=== PATIENT | male | born 1990 | race Caucasian/White ===

== ENCOUNTER 2016-12-05 00:19 | Observation (INO) | payer OTHER ==
[~2016-12-05] VITALS: Ht 182.9 cm; Wt 61.2 kg
--- NOTE | 2016-12-05 00:30 | NUR ---
PT TO ROOM 12, SECURITY AT BEDSIDE FOR WANDING. PT CHANGED INTO BLUE SCRUBS.
--- NOTE | 2016-12-05 00:34 | ED PSYCHIATRIC COMPLAINT ---
History of Present Illness General Chief Complaint: ETOH/Drug Related Complaint Stated Complaint: PER PT "I TOOK ALOT OF ADVIL" +SI Source: patient, family Exam Limitations: no limitations Vital Signs & Intake/Output Vital Signs & Intake/Output Vital Signs Date Time Temp Pulse Resp B/P Pulse O2 O2 Flow FiO2 Ox Delivery Rate 12/05 1919 96.0 78 132/63 12/05 1707 98.4 63 18 122/62 100 12/05 1432 96.0 70 16 137/74 97 Room Air 12/05 1014 97.0 70 18 130/78 98 Room Air 12/05 0608 96.5 71 20 127/61 98 Room Air 12/05 0036 96.4 108 20 139/80 96 Room Air Allergies Coded Allergies: NO KNOWN ALLERGIES (06/19/12) Triage Nurses Notes Reviewed? yes HPI: Patient took approximately 50 tablets of Advil and a suicide attempt approximately 2 hours prior to arrival. Patient denies coingestions. Patient denies any homicidal ideations. Patient denies any nausea or vomiting. Patient states that he took them all at once. Patient denies any hallucinations. Patient states he has one prior suicide attempt when he was a teenager. (ALEXIA FITZPATRICK,NADIA Briones) Reconcile Medications No Known Home Medications (NANCY HORNER DO) Past History Medical History Any Pertinent Medical History? none Influenza Vaccine: 06/20/12 Surgical History Surgical History: non-contributory Psychosocial History Who do you live with Significant Other What is your primary language Amharic Tobacco Use: Current Daily Use Daily Tobacco Use Amount/Type: => 5 Cigarettes daily ETOH Use: occasional use Illicit Drug Use: denies illicit drug use Family History Hx Contributory? No (ALEXIA FITZPATRICK,NADIA Briones) Review of Systems Review of Systems Constitutional: Reports: no symptoms. EENTM: Reports: no symptoms. Respiratory: Reports: no symptoms. Cardiovascular: Reports: no symptoms. GI: Reports: no symptoms. Genitourinary: Reports: no symptoms. Musculoskeletal: Reports: no symptoms. Skin: Reports: no symptoms. Neurological/Psychological: Reports: see HPI, depressed. Hematologic/Endocrine: Reports: no symptoms. Immunologic/Allergic: Reports: no symptoms. All Other Systems: Reviewed and Negative (ALEXIA FITZPATRICK,NADIA Briones) Physical Exam Physical Exam General Appearance: well developed/nourished, mild distress Head: atraumatic Eyes: Bilateral: PERRL, EOMI. Ears, Nose, Throat: normal pharynx, normal ENT inspection, hearing grossly normal Neck: normal inspection, supple Respiratory: normal breath sounds Cardiovascular: regular rate/rhythm Gastrointestinal: soft, non-tender Extremities: normal range of motion Neurological/Psychiatric: no motor/sensory deficits, awake, alert, calm, oriented x 3 Appearance/Memory/Insight: appropriate appearance, appropriate insight Behavoir/Eye Contact/Speech: cooperative, normal speech, good eye contact Thoughts/Hallucinations: normal thought pattern, no apparent hallucination Skin: intact, normal color, warm/dry SAD PERSONS Done? CRISIS CONSULT OBTAINED (ALEXIA FITZPATRICK,NADIA Briones) Progress Differential Diagnosis: drug intoxication, drug overdose, drug withdrawal, electrolyte abnormality Plan of Care: Orders Procedure Date/time Status Regular Diet 12/06 B Active Regular Diet 12/05 B Complete Admit to inpatient psych 12/05 1842 Active Vital Signs 12/05 1811 Active Admit to inpatient psych 12/05 1507 Active Discharge Patient 12/05 1507 Active Add-on Test (ER Only) 12/05 0718 Active ACETOMINOPHEN 12/05 0718 Active ACETOMINOPHEN 12/05 0633 Complete SALICYLATE 12/05 0633 Complete BASIC METABOLIC PANEL 12/05 0608 Complete Intake & Output 12/[address] in observation 12/05 0043 Active Patient Data 12/05 0043 Active Code Status 12/05 0043 Active Continuous Observation Monitor 12/05 0033 Active URINE DRUGS OF ABUSE 12/05 0033 Complete ACETOMINOPHEN 12/05 0033 Complete SALICYLATE 12/05 0033 Complete ETHANOL 12/05 0033 Complete COMPREHENSIVE METABOLIC PANEL 12/05 0033 Complete CBC WITHOUT DIFFERENTIAL 12/05 0033 Complete EKG 12/05 0033 Active ED CRISIS PSYCH CONSULT 12/05 0033 Active Current Medications Sig/Sarika Start time Last Medication Dose Stop Time Status Admin Chlorpromazine 25 MG Q6P PRN 12/05 181 AC (Thorazine 25MG Tab) Hydroxyzine HCl 25 MG Q6P PRN 12/05 181 AC (Atarax) Lorazepam 1 MG Q6P PRN 12/05 181 AC (Ativan) Trazodone HCl 50 MG AT BEDTIME NEED.. 12/05 181 AC (Desyrel) Laboratory Tests 12/05/16 0633: Anion Gap 12, Estimated GFR > 60, BUN/Creatinine Ratio 11.7, Glucose 82, Calcium 9.9, Salicylates < 1.0, Acetaminophen < 10.0 L 12/05/16 0137: Urine Opiates Screen < 100.00, Methadone Screen < 40, Barbiturate Screen < 60, Ur Phencyclidine Scrn < 6.00, Amphetamines Screen 171, U Benzodiazepines Scrn < 85, Urine Cocaine Screen < 50, Urine Cannabis Screen 74.10 H 12/05/16 0040: Anion Gap 19 H, Estimated GFR > 60, BUN/Creatinine Ratio 13.6, Glucose 95, Calcium 10.3 H, Total Bilirubin 0.8, AST 28, ALT 44, Alkaline Phosphatase 106, Total Protein 8.4 H, Albumin 5.0, Globulin 3.4, Albumin/Globulin Ratio 1.5, CBC w Diff NO MAN DIFF REQ, RBC 4.84, MCV 89.1, MCH 31.0, RDW 12.8, MPV 7.6, Gran % 77.2 H, Lymphocytes % 16.8 L, Monocytes % 5.0, Eosinophils % 0.5, Basophils % 0.5, Absolute Granulocytes 9.9 H, Absolute Lymphocytes 2.2, Absolute Monocytes 0.6, Absolute Eosinophils 0.1, Absolute Basophils 0.1, PUBS MCHC 34.8, Salicylates < 1.0, Acetaminophen < 10.0 L, Serum Alcohol < 10.0 Initial ED EKG: NSR, no ST T wave changes Hand-Off Endorsed To: NANCY HORNER DO Endorsed Time: 0700 Pending: consult (ALEXIA FITZPATRICK,NADIA Briones) Departure Departure Disposition: STILL A PATIENT Condition: Stable Clinical Impression Primary Impression: Overdose Secondary Impressions: Suicide attempt Referrals: PATIENT HAS NO PRIMARY CARE DR (PCP/Family) Departure Forms: Customer Survey General Discharge Information (ALEXIA FITZPATRICK,NADIA Briones) Departure Prescriptions: Current Visit Scripts No Known Home Medications Comments 12/05/16 7 am The patient was signed out to me by Dr. Gregory. He is being observed for repeat creatinine. The patient was in no acute distress resting comfortably, denied any complaints. 2:30 pm The patient was evaluated by crisis. He has been medically cleared. He is for admission to Inpatient Psychiatry. 12/05/16 4:25 PM I spoke with the patient and his family. They are insistent upon leaving. I explained to them that he is being held as he had a potentially life-threatening overdose. I informed that he was being involuntarily admitted for his own protection by me , because he had a potentially life-threatening overdose. The patient and his mother continued to escalate. He became progressively more agitated. I spoke with both his mother and his father multiple times, about the need for admission. I informed the patient and his mother that I will have the psychiatrist evaluate him in the emergency department, as I feel strongly he still needs to be involuntarily admitted for his own protection and the situation was escalating to the need for sedation and restraint. I spoke to the on-call psychiatrist, who agreed to evaluate the patient the ED. The psychiatrist, the mental health clinician and I all met with the patient and the mother and informed them of our concerns for his own safety, and that we were all in agreement with the need for involuntarily admitting him for his own safety. Psych Admission Note Psychiatric Admission: I have seen and evaluated SELENA NAJERA JR. I have also reviewed all the pertinent lab results and diagnostic results. SELENA NAJERA JR will be admitted to our inpatient Psychiatric unit for treatment and care. (EVENS PARMAR,NANCY Lino) Critical Care Note Critical Care Note Critical Care Time: mins: (45 MIN) (ALEXIA FITZPATRICK,NADIA Briones) ED Attending Observation Initial Observation Note: I have seen and personally examined SELENA NAJERA JR on 12/05/16 at 0043. I agree with the current emergency department documentation. The disposition (admission or discharge) is uncertain at this time, he needs a period of observation for the following reason(s): [Patient took approximately 10,000 mg of Motrin. Patient given charcoal in case there is a pill ball in his stomach to prevent further observation. Patient will need repeat chemistries in the morning to reevaluate his kidney status. As long as his kidney status remains good the patient will be medically cleared for crisis evaluation.] The ED Nurse caring for this patient has been personally informed as to what the patient is being observed for. Observation Re-Evaluation: I have reevaluated SELENA NAJERA JR on 12/05/16 at 0310. The physical findings that support the continued need to observe this patient include [patient remains calm and cooperative. Patient drank charcoal without difficulty. His neck is supple, his lungs are clear to auscultation bilaterally with good air entry and his cardiac exam is regular rate and rhythm. No repeat a BMP in the morning and once he is medically cleared he'll see crisis.]. (ALEXIA FITZPATRICK,NADIA Briones) Observation Discharge: I have reevaluated DANIASELENA JR on 12/05/16 at 1508. The patient is: (): Stable for discharge ([X]): To be admitted to Nursing Floor (): To be placed in Observation on Nursing Floor (): For transfer to other facility The patient was being observed for [following of the serum creatinine levels and evaluation by crisis to determine if the patient remains suicidal. His repeat creatinine is unremarkable. His crisis evaluation to determine that he is suicidal and needs admission to Inpatient Psychiatry. He was accepted for admission by Inpatient Psychiatry] As a result of that observation, I have determined . (NANCY HORNER DO)
--- NOTE | 2016-12-05 00:36 | NUR ---
PT TO ED AFTER TAKING 50+ 200MG ADVIL IN AN SUICIDAL GUESTURE. PT STATES THAT "A LOT OF STUFF HAS BEEN BUILDING UP AND HE JUST COULDNT TAKE IT ANYMORE". PT HAS NO MEDICAL HISTORY, PREVIOUS SI ATTEMPT BACK IN HIGH SCHOOL. PT CURRENTLY DENIES SI OR HI. PT WAS FOUND BY COUSIN AND FRIEND WHO CONVINCED HIM TO COME TO THE HOSPITAL. AT BEDSIDE FOR PT EVALUATION.
--- NOTE | 2016-12-05 00:40 | NUR ---
CHARCOAL GIVEN. PT SIPPING SLOWLY.
[2016-12-05 00:50] LABS: ABSOLUTE BASOPHIL COUNT 0.1 /CUMM (0.0-0.2); ABSOLUTE EOSINOPHIL COUNT 0.1 /CUMM (0.0-0.7); ABSOLUTE GRANULOCYTE CT 9.9 /CUMM (1.4-6.5); ABSOLUTE LYMPH COUNT 2.2 /CUMM (1.2-3.4); ABSOLUTE MONOCYTE COUNT 0.6 /CUMM (0.10-0.60); BASOPHIL % 0.5 % (0.0-2.0); EOSINOPHIL % 0.5 % (0-5); GRANULOCYTE % 77.2 % (42.2-75.2); HEMATOCRIT 43.2 % (42-52); MEAN CORPUSCULAR HGB CONC 34.8 G/DL (33.0-37.0); MEAN CORPUSCULAR VOLUME 89.1 FL (80.0-94.0); MEAN PLATELET VOLUME 7.6 FL (7.4-10.4); PLATELET COUNT 356 /CUMM (130-400); RBC DISTRIBUTION WIDTH 12.8 % (11.5-14.5); RED BLOOD CELL CT 4.84 /CUMM (4.70-6.10); WHITE BLOOD CELL COUNT 12.8 /CUMM (4.8-10.8)
--- NOTE | 2016-12-05 01:53 | NUR ---
(2) BAGS TAKEN BY MOTHER, NO VALUABLES TO SAFE.
--- NOTE | 2016-12-05 01:54 | NUR ---
PT TO ROOM 14, PTS MOTHER TOOK PTS BELONGINGS AND VALUABLES
--- NOTE | 2016-12-05 03:00 | NUR ---
SLEEPING QUIETLY SITTER AT DOOR.
--- NOTE | 2016-12-05 06:35 | NUR ---
CMP REDRAWN AND SENT TO LAB BY THIS RN
--- NOTE | 2016-12-05 08:05 | NUR ---
ASSUMED CARE OF PT WHO IS CURRENTLY SLEEPING. RR EVEN AND UNLABORED. PT PREVIOUSLY ATE BREAKFAST TRAY. PT WAITING FOR CRISIS EVAL. SITTER REMAINS AT DOORWAY
--- NOTE | 2016-12-05 09:45 | NUR ---
PT's mom brought a bag of clothes for the PT. Security inspected and placed in a belongings bag and locked in closet
--- NOTE | 2016-12-05 10:37 | NUR ---
PT HAS NO COMPLAINTS AT THIS TIME. MOTHER OF PT AT BEDSIDE. SITTER REMAINS AT DOORWAY. PT WAITING FOR CRISIS EVALUATION
--- NOTE | 2016-12-05 11:20 | NUR ---
Pt's mom left. She (Maritza) can be reached at [phone] cell
--- NOTE | 2016-12-05 11:37 | NUR ---
RECIEVED REPORT AND ASSUMED CARE OF PT. PT SLEEPING, EASILY AROUSED, CALM AND COOPERATIVE VOICING NO COMPLAINTS. SITTER IN ATTENDANCE, AWAITING CRISIS EVAL.
--- NOTE | 2016-12-05 13:49 | NUR ---
CRISIS EVAL IN PROGRESS
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
--- NOTE | 2016-12-05 14:32 | NUR ---
REMAINS CALM AND COOPERATIVE WATCHING TV, NO COMPLAINTS, AWAITING DISPO FROM CRISIS
--- NOTE | 2016-12-05 15:35 | NUR ---
PT NOTED TO BE USING PERSONAL CELLPHONE BY ASSISTANT PROFESSOR SURGICAL TECHNOLOGY. MD AWARE, LICENSED WEIGHER AWARE. PT REPORTS HE HAS IT SINCE LAST PM. PT CELLPHONE ACQUIRED AND LOCKED IN ER SAFE WITH SECURITY IN ATTENDANCE. PT AGREEABLE TO GIVING UP CELLPHONE AFTER BEING ABLE TO WRITE DOWN PHONE NUMBERS.
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
--- NOTE | 2016-12-05 17:31 | NUR ---
PT SITTING IN ROOM WITH VISITOR, CURRENTLY COOPERATIVE. AWAITING ADMISSION.
--- NOTE | 2016-12-05 18:23 | ED PSYCHIATRIST/APRN CONSULT ---
Psychiatrist/COMPENSATION VICE PRESIDENT ED Consult Assessment and Plan: Reviewed pt charge and saw pt with mother present (at pts request) Pt admitting to taking the overdose in a state of distress due to numerous psychosocial stressors. However, he now believes that he is "fine" and "would never do anything like that again." Pt attempted to negotiate with this provider along with ER provider and nelaan in an effort to not be admitted for acute psychiatric stablization in the setting of serious overdose attempt. Mother very upset as well. She feels that "now he knows he can come to me for help." She noted that he lives with her and two younger children and that she "spends all her time with him." Despite this, she was not aware of the distress he was in that lead to his OD. Additionally family history, During the course of the interaction, mother revealed that she was psychiatrically hospitalized for 5d when the patient was 7yo after a serious overdose attempt. She lost custody of her children as a result. Mother very angry about this. In addition, pts father has previously been hospitalizated psychiatrically. Pt notifed on PEC and explained what this was. Notified could file for probabe cause hearing and notifed of the timeline. Mother stated that she planned on calling the [employer] police to state that "you guys are holding him against his will." Father also present for some time via speaker phone. Adamant that pt should be discharged. Given serious overdose, marked psychosocial stress as well as SI which was not shared with family even though in same house, continued minimization of the attempt (50+ pills), and little to no insight, pt at HIGH risk for harm to self. As such, PEC writter by ER provider. Pt to be admitted to [facility] for stablization. Trazodone 50mg qhs PRN sleep Ativan 1mg q6h PRN agitation Thorazine 25mg q6h PRN agitation Hydroxyzine 25mg q6h PRN anxiety
--- NOTE | 2016-12-05 18:36 | NUR ---
PT'S MOTHER TAKING PT'S 1 VALUABLES BAG WITH CELLPHONE HOME. BELONGINGS REMAIN IN CLOSET.
--- NOTE | 2016-12-05 18:48 | NUR ---
REPORT CALLED TO ED ON [facility], TRANSPORT CALLED.
[2016-12-05 19:19] VITALS: BP 132/63
== END 2016-12-05 18:53 ==
LOC: ERH 00:19 → ERHI 00:43 → CMPBEDREQ 19:00 → ERHI 19:09 → CP SOUTH 19:09
PROVIDERS: ADMIT Emergency Medicine
DX: T39.312A Poisoning by propionic acid derivatives, intentional self-harm, initial encounter (principal); F17.200 Nicotine dependence, unspecified, uncomplicated
CPT/HCPCS: 6090; 80307; 93005; 93010; 99291; G0378; G0480; J2765; J3230

== ENCOUNTER 2016-12-05 16:44 | Inpatient (IN) | payer OTHER ==
[~2016-12-05] VITALS: Ht 172.7 cm; Wt 75.3 kg
[2016-12-05 19:22] VITALS: BP 132/63
--- NOTE | 2016-12-05 20:43 | NUR ---
PT IS A 26 YR OLD SINGLE MALE BROUGHT ON A PEC FOR A RECENT SUICIDAL GESTURE WITH 50 PILLS OF IBUPROFEN. PT HAD RECENT INCREASE IN STRESSORS, INCLUDING RELATIONSHIP PROBLEMS, LOSS OF JOB, AND FINANCIAL ISSUES. PT'S SLEEP HAD BEEN DISRUPTED RECENTLY. PT DENIES SUICIDAL IDEATION NOW. HE HAS A STRONG SUPPORT SYSTEM. PT IS FORWARD THINKING. PT DENIES HI, AH, VH, PARANOIA, PAIN, OR COMPULSIONS.
--- NOTE | 2016-12-05 20:59 | History & Physical ---
General Information and HPI MD Statement: I have seen and personally examined SELENA NAJERA JR and documented this H& P. The patient is a 26 year old M who presented with a patient stated chief complaint of [ medical evaluation]. Source of Information: patient Exam Limitations: no limitations History of Present Illness: Patient came to ER 2 hours after taking approximately 50 tablets of 200 mg Advil with a suicide attempt. He denies any other coingestions. He was given Charcoal within half an hour of arrival. Currently he regrets his act and denies any suicidal or homicidal ideations, hallucinations, feeling depressed. He denies any abdominal pain, headache, nausea or vomiting. Patient states that he took them all at once. 14 point ROS negative. Allergies/Medications Allergies: Coded Allergies: NO KNOWN ALLERGIES (06/19/12) Home Med list No Known Home Medications Past History Travel History Traveled to [place] past 21 day No Medical History Neurological: NONE EENT: NONE Cardiovascular: NONE Respiratory: NONE Gastrointestinal: NONE Hepatic: NONE Renal: NONE Musculoskeletal: NONE Psychiatric: NONE Endocrine: NONE Blood Disorders: NONE Cancer(s): NONE CLASSROOM INSTRUCTIONAL AIDE/Reproductive: NONE History of MRSA: No History of VRE: No History of CDIFF: No Isolation History: Standard Influenza Vaccine: 04/10/16 Surgical History Surgical History: non-contributory, appendectomy Past Family/Social History Family History Relations & Conditions if any Relation not specified for: *No pertinent family history Psychosocial History Where do you live? Home Who Do You Live With? parent Services at Home: None Primary Language: Swiss Smoking Status: Former Smoker (now Vaporizer) ETOH Use: occasional use (last use 5 months back) Illicit Drug Use: marijuana (once in 1 to 2 wk) Functional Ability ADLs Independent: dressing, eating, toileting, bathing. Ambulation: independent IADLs Independent: shopping, housework, finances, food prep, telephone, transportation , medication admin. Sexual History Sexually Active No Sexual Orientation Heterosexual (1 partner for 5 yr, till ) Use of Protection No Employment History Employment Unemployed (machanist in the past ) Review of Systems Review of Systems Constitutional: Reports: no symptoms. EENTM: Reports: no symptoms. Cardiovascular: Reports: no symptoms. Respiratory: Reports: no symptoms. GI: Reports: no symptoms. Genitourinary: Reports: no symptoms. Musculoskeletal: Reports: no symptoms. Skin: Reports: no symptoms. Neurological/Psychological: Reports: no symptoms. Hematologic/Endocrine: Reports: no symptoms. Immunologic/Allergic: Reports: no symptoms. All Other Systems: Reviewed and Negative Exam & Diagnostic Data Last 24 Hrs of Vital Signs/I&O Vital Signs Date Time Temp Pulse Resp B/P Pulse O2 O2 Flow FiO2 Ox Delivery Rate 12/05 1921 96.0 78 132/63 Physical Exam General Appearance Alert, Oriented X3, Cooperative, No Acute Distress Skin No Rashes, No Breakdown HEENT Atraumatic, PERRLA, EOMI Neck Supple, No JVD, No thryomegaly, +2 Carotid Pulse wo Bruit Lymphatic Cervical nl Cardiovascular Regular Rate, Normal S1, Normal S2, No Murmurs Lungs Clear to Auscultation, Normal Air Movement Abdomen Normal Bowel Sounds, Soft, No Tenderness, No Hepatospenomegaly Neurological Exam Findings: Normal Gait, Normal Speech, Strength at 5/5 X4 Ext, Normal Tone, Sensation Intact, Cranial Nerves 3-12 NL, Reflexes 2+ Cranial Nerves II through XII: intact Extremities No Clubbing, No Cyanosis, No Edema, Normal Pulses, No Tenderness/ Swelling Vascular Normal Pulses, Pulses Symmetrical Last 24 Hrs of Labs/Ashok: CBC and BMP reviewed from ER. Creatinine increased from 1.1 to 1.2, BUN stable. AG decreased from 19 to 12. Diagnostic Data EKG Results reviewed. Assessment/Plan Assessment: # 1 Suicidal attempt: currently not suicidal or hallucinations. agree with Psychitry plan. # 2 Advil Overdose: 200 mg X 50 tabs, s/p charcoal. No abdo pain, n/V/ CP. We will repeat BMP and LFT on 12/06 and 12/07. PPI daily for 3 days. Supportive care. As Ranked By This Provider Problem List: 1. Overdose 2. Suicide attempt 3. NSAID overdose Miscellaneous Miscellaneous Documentation Attending Case Discussed With: ARCELIA GARCIA MD Primary Care Physician: PATIENT HAS NO PRIMARY CARE DR Patient sees these Specialists no medical doctor Level of Patient Care: CINTHIA Self
--- NOTE | 2016-12-05 21:56 | Admission Certification ---
Admission Certification Certification Statement - As attending physician, I certify that at the time of - admission, based on clinical presentation, severity of - symptoms, need for further diagnostic testing and - therapeutic interventions, and risk of adverse outcomes - without in-hospital treatment, in my clinical assessment, - this patient requires an acute hospital stay for a minimum - of two nights or longer. I have also considered psychsocial - factors such as support system, advanced age, financial - issues, cognitive issues, and failed out-patient treatments, - past re-admission history, safety of patient, and lack of - compliance as applicable. Specific rationale supporting this admission is: Advil (NSAID overdose) with suicidal attempt
--- NOTE | 2016-12-06 05:56 | NUR ---
PT APPEARED TO SLEEP WELL AFTER ARRIVAL LAST EVENING. PT CALM AND COOPERATIVE. HE DENIES SI.
[2016-12-06 08:07] VITALS: BP 141/76
--- NOTE | 2016-12-06 09:55 | SOCIAL WORKER SOCIAL HX PSYCH ---
Social History Basic Assessment Insurance Authorization: Insurance #1: Insurance name: SELF-PAY Phone number: Policy number: Group number: Authorization number: Curr Source of Income/Entitlements: unemployment Primary Care Physician: Patient's PCP: PATIENT HAS NO PRIMARY CARE DR PCP's Phone Number: Present Problem: Met with Stanley today to complete social history. He was calm and cooperative, seems to be minimizing the overdose. He stated he has never made a suicide attempt before, and stated "it was just everything at once...it was too much." HE stated he took the pills, then he texted his cousin who met him and talked with PT. PT. then decided to come to the hospital. He has a 2yo daughter, Elicia deluna he cares for Sun through Sunday, and everyother weekend since he has been out of work, (since 2015). He was in a relationship with a woman for 1-1/ 2 months and they broke up, also he hasn;t been able to find a job... 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 He reported using Cannibis (a couple hits off a bowl) once very week or everyother week. He is living with his MOther and Step-Father, stated he gets along with both. His Father lives in [facility] and has a history of a suicide attempt, and drug addiciton (crack cocaine) and has been clean x6yrs. His Mother has depression and is on medication. He stated he has a job now, "My freind is going to give me a job, so I should be better now." His insight and jusgement is limited. He agreed to have a family meeting with his Mother. HE is not interested in medications at time of this meeting. Primary Language? Kyrgyz Language(s) Spoken At Home: Kyrgyz Living Situation Other Living Arrangement: relative's/guardian's christine Feel Safe Where You Are Living Yes Feel Safe in Relationships? Yes Comments: Lives with Mother and step-Father Allergies - Coded Allergies: NO KNOWN ALLERGIES (06/19/12) Current Medications - No Known Home Medications Past History Past Medical History Neurological: NONE EENT: NONE Cardiovascular: NONE Respiratory: NONE Gastrointestinal: NONE Hepatic: NONE Renal: NONE Musculoskeletal: NONE Psychiatric: NONE Endocrine: NONE Blood Disorders: NONE Cancer(s): NONE ROADWAY TECHNICIAN/Reproductive: NONE Past Surgical History Surgical History: non-contributory, appendectomy /Family History Place/Country of Origin: [place], [place] Childhood Family Constellation: Both parents and sister Primary Childhood Caretakers: father, mother, grandparent(s) Family Life During Childhood: lived with both parents until 5yrs old, parents . Then lived with Father and Paternal grandparents. Moved in with Mother when in 6th grade natanael to Father 's drug issues (crack cocaine). DCF Involvement? No Mother's Age (Current/): 5 Relationship w/Mother: Good. Mother has depression takes medication Father's Age (Current/): 51 Relationship w/Father: Father lives in [facility] - was addicted to Crack cocaine - doing better - clean and sober. 6yrs. He has hisory of suicide attempt in past. Talk to Father 3-4x per week. Close Any Sibling(s)? Yes Sibling's Gender(s)/Age(s): female Sibling 1: Relationship w/Sibling(s): 28yo sister - we talk now and then. SHe is and has 3 kids. Relationship w/Friends: has friends. Family Psych/Sub Abuse/Add Hx: drug of choice, diagnosis Other Comments: Mother - depression Father - depression, SI attempt, drugs - crack cocaine Abuse/Trauma History Trauma History/Current Trauma: Denies Legal History Current Legal Status: none Number of Arrests: 1 Hx of Adult Legal Charges? Yes If Yes: Breach of peace 2nd degree - did community service. Psychosocial History Primary Support System: father, mother, sibling(s), step-Father Strengths/Capabilities: unable to assess at this time Weaknesses: Depression - stated "everything hit me at once" unemployed, financial, break-up with girlfriend Physical Limitations (Interventions): No Last Physical: a long time ago History of Seizures? No History of Blackouts? No ADL Limitations: Denied [place]/Social/Peer Relations has friends Meaningful Activities: fishing, BMX biking, being outdoors Childhood Caodaism: Presybeterian Current Pentecostalism Affiliation: no lutheran stated Is Spirituality Important to You? Yes Patient's Ethnicity: Greenlandic, Amharic, Cultural/Ethnic Issues: NONE Are There Developmental Issues? No Milestones Achieved: WNL Psychiatric Treatment History Psych Treatment Inpatient Treatment No Outpatient Treatment No Current Research Engineer Marine Equipment: NONE Diagnosis: None Psychodynamic Issues: Depression, drug use - Cannibis, unemployed, relationship issues (break-up), financial. Risk Factors: high anxiety/distress, substance abuse, poor impulse control, male Substance Use/Abuse History Drug Use/Abuse Substance Used/Abused Marijuana First Use unknown Last Used MANAGER PLUMBING How much used/taken 1-2 hits bowl (1x week or every 2 weeks) How often sporadic For how long ongong Route of use oral Have Had Periods of Sobriety? Yes Explain: When worked as a general machinist I was drug tested - clean 2yrs. Relapse History? Yes Explain: Stopped working as general machinist Have You Ever Attended AA? No Do You Attend AA Currently? No Do You Have a Sponsor? No Symptoms of Use: PT miinimizes drug use (cannibis) Substance Abuse Treatment Substance Abuse Treatment Inpatient Treatment No Sexual History Sexual Concerns: no Education History Highest Level of Education: high school/GED Highest Grade Completed: 12th (took night classes) Preferred Learning Style: visual, auditory, experiential HX of Learning Difficulties: None reported Barriers to Learning: None reported Special Communication Needs: None reported Employment History Employment Unemployed (machanist in the past ) Not in Labor Force: unemployed Vocation/Occupational Hx: general machinist, chef kitchen manager No. of Jobs in Last 5 Years: 3 Attendance: Normal Performance: Good Comments: PT. was a general machinist for 2yrs, was a Imaging Technician for 8yrs. History Have You Been in The ? No Current Mental Status Problem List: 1. Suicide attempt 2. Overdose - Conclusion and Recommendations for treatment - and discharge planning
--- NOTE | 2016-12-06 11:00 | SOCIAL WORKER PROG NOTE PSYCH ---
Social Work Progress Note Progress Note [place] [id number]
--- NOTE | 2016-12-06 11:26 | CPS MD/APRN INITIAL ASSE PSYCH ---
Psychiatric Admission Quill Worker's Note Reviewed: Yes Patient Seen and Examined: Yes Identifying Information: Patient is a 26 year old single, male who presented to ED after taking 50+ tabs of Advil 200mg in a suicide attempt. Urine tox (+) for cannabis. Patient with no prior psychiatric history or treatment. Chief Complaint: "I made a mistake, I didnt try to kill myself." Reaction to Hospitalization: "Initially I was really suprised, but when I got here every one was really nice. 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 He reported overreacting to stressors he bottled up - the loss of his job in May 2016 and loss of his apartment in June 2016. Prior to this, he denied prior suicide attempts or suicidal ideation. He reported gesture was not an act to kill himself but an attempt to "release" stress. Patient verbalized the severity of his actions, and verbalized understanding for why he was hospitalized on a PEC. Circumstances Leading to Admission: Stress of losing his job and apartment. Problem(s) Justifying Need for Admission: Severe overdose attempt Past Psychiatric History Past Diagnosis(es)- if any: Unspecified depressive disorder Cannabis use disorder, mild Past Precipitating Factors- if any: Unknown - Include inpatient and outpatient treatment Treatment History: Denied History of Suicide Attempts or Gestures Denied Substance Abuse History: Cannabis: reports smoking a "small" amount once a week approximately every 2 weeks. Alcohol: occasional/social use. Denied use of other illicits Utox (+) for cannabis only BAL less than 10mg/dl Allergies: Coded Allergies: NO KNOWN ALLERGIES (06/19/12) Home Med List: None - Include any medical condition(s) that may - impact the patient's recovery/remission Past Medical History: Denied Past History Medical History Neurological: NONE EENT: NONE Cardiovascular: NONE Respiratory: NONE Gastrointestinal: NONE Hepatic: NONE Renal: NONE Musculoskeletal: NONE Psychiatric: NONE Endocrine: NONE Blood Disorders: NONE Cancer(s): NONE DIRECTOR GLOBAL MEDICAL AFFAIRS/Reproductive: NONE History of MRSA: No History of VRE: No History of CDIFF: No Isolation History: Standard Influenza Vaccine: 04/10/16 Surgical History Surgical History: non-contributory Psychiatric Family/Social Hx Family History Psychiatric Illness: Mother - "manic depressive" Substance Use: Mother- hx crack/cocaine use disorder (Bio)Father - hx crack/cocaine use disorder Suicides: Per crisis collateral from patient's mother, both she and her ex- (pt's biofather) had unsuccessfully attempted suicide by overdose twice. Other Family History: Patient has a 2y/o daughter. Social History Living Situation: Pt lives with his his mother and step-father. Significant Relationships (family/friends): Mother, father, 2 y/o daughter, sister, cousins, friends. Education: graduate Vocation/Occupation: Unemployed. 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 Lost job in 05/26 after company relocated out of state. Legal: Per [place] judicial site - patient charged for breach of peace 2nd degree in 2007. Healthly Behaviors Screening Tobacco Screening Tobacco Use from ED Docu: Current Daily Use Daily Tobacco Use Amount/Type: =< 4 Cigarettes daily (uses vaporizer) - If tobacco counseling indicated - the following topics are required. - #1 Recognizing dangerous situations. - #2 Coping Skills. - #3 Basic information about quitting. Status of Tobacco Cessation Counseling: #1, #2 AND #3 Completed Cessation Med Status: Pt Refused Cessation Meds Alcohol Screening - ETOH screen POS if BAL >=80 or Audit-C>= M4/F3 Audit-C Score from Diag Assess: 0 Blood Alcohol Level: Lab Serum Alcohol < 10.0 MG/DL 12/05/16 0040 Alcohol Use Screening Results: Neg per Audit C &/or BAL - If ETOH counseling indicated - the following topics are required. - #1 Express concern about the patient's - drinking at unhealthy levels, include informing - of national norms for moderate drinking: - men <= 14 drinks/week, max 4 drinks/occasion - women <= 7 drinks/week, max 3 drinks/occasion - #2 Providing feedback, including linking alcohol to - negative physical effects (liver injury, hypertension) - negative emotional effects (relationship problems and - depression) - negative occupational consequences (reduced work - performance) - #3 Advising the patient to abstain from alcohol or - to drink below national norms for moderate drinking - (as listed above). Status of ETOH Use Counseling: N/A B/C NO ETOH Use Metabolic Screening - Screen if on a Neuroleptic Medication - Metabolic screening should include: - Blood Pressure, BMI, Glucose or Hgb A1c, & a - Lipid profile from within the past 365 days. Metabolic Screening ([X]) Not Applicable, patient not on a neuroleptic. OR () Patient on a neuroleptic(s) . Enter below results for Glucose or Hemoglobin A1C, and lipid panel if obtained during the last 365 days. BMI: 25.200 Blood Pressure: 141/76 Laboratory Results (If applicable): n/a Exam and Plan Mental Status Examination Ambulation Status: steady and independent Appearance: 26-year old CM who appears stated age. Tall, thin, well-groomed. Dressed casually and comfortably. Attitude towards examiner: Calm, cooperative, polite Psychomotor activity: No psychomotor retardation or agitation noted Behavior: Calm, engaging Quality of speech: Soft-spoken Affect: Full-range Mood: "fine" Denied acute symptoms of anxiety/depression Denied feeling hopeless/helpless/worthless/guilty Suicidal Ideation: denied Homicidal Ideation: denied Hallucinations: denied Paranoid/Delusional Material: none evident Difficulties with thought organization: none evident Insight: fair Judgment: limited Orientation: x4 Cognition: Grossly intact Memory Function: Grossly intact Estimate of intellectual functioning: average Assets/Strengths Patient Identified Assets/Strengths: supportive family/friends open to exploring treatment Impression/Plan Impression and Plan: Patient is a 26-year old male with no formal psychiatric history, prior treatment, or suicide attempts. Presented to ED for first time status-post intentional overdose on 50+ tabs Advil (200mg tabs) with unclear intent. Patient adamently denied overdose was a suicide attempt. He claims it was an attempt to release emotions in the context of struggling to cope with the losses of his job and apartment. At this time, patient was open to exploring treatment on unit. He was offered to sign a probable cause form or voluntary admission form. Both forms were reviewed with patient, who verbalized understanding, but declined to sign. At this time, he wishes not to pursue psychotropic medications and is willing to attend milieu groups. He will be monitored on the unit for safety, suicidal ideation and mood. - Include all active medical diagnosis that require tx DSM 5 Diagnosis(es): Unspecified depressive disorder Cannabis use disorder, mild - Initial Tx Plan for Active Psych & Medical Conditions Treatment Plan: 1. Monitor patient on unit for safety, mood, suicidal ideation. 2. Obtain collateral from patient's family. Family meeting scheduled for 1:30PM tomorrow (, 12/07/16) with mother. 3. Encourage participation in milieu therapy. 4. Rpt BMP and LFTs per flight technician recommendation (see H&P) 5. Educate patient on antidepressant therapy, if agreeable to consider. 6. When symptoms are clinically stable, consider referral to OPS or IOP. - Factors that would help patient function - in a less restrictive setting. Factors: Alleviation of suicidal thoughts Mood stabilization
--- NOTE | 2016-12-06 11:53 | SOCIAL WORKER PROG NOTE PSYCH ---
Social Work Progress Note Progress Note Stanley's [employer] Auth [id number] Introduced to Stanley. A family meeting was set up by Lizzy Guzman APRN for 1: 30pm tomorrow. Stanley was informed of the meeting. He said he was doing well.
[2016-12-06 12:44] VITALS: BP 139/64
--- NOTE | 2016-12-06 13:46 | NUR ---
PT IS QUIET AND WITHDRAWN DUE TO ANXIETY AND FEAR OF THE UNKNOWN. PT'S GOAL WAS TO ADJUST TO THE UNIT AND GET COMFORTABLE IN THE COMMUNITY. PT GOES TO GROUP AND HAS SHY-LY PARTICIPATED. PT DENIES SI AT THIS TIME.
[2016-12-06 17:28] VITALS: BP 130/77
[2016-12-06 19:50] VITALS: BP 132/70
--- NOTE | 2016-12-06 22:09 | NUR ---
PT HAS BEEN ISOLATIVE AND WITHDRAWN, REMAINING IN BED FOR MAJORITY OF EVENING. HAD A VISITOR THROUGHOUT THE EVENING AND RETREATED TO ROOM ONCE THEY LEFT. PLEASANT AND COOPERATIVE WITH STAFF. MINIMAL INTERACTION WITH PEERS AND STAFF. NO COMPLAINTS OR SI REPORTED. PT HAS A STABLE MOOD AND CONSTRICTED AFFECT.
--- NOTE | 2016-12-07 05:54 | NUR ---
PATIENT SLEPT ALL NIGHT.
[2016-12-07 07:57] VITALS: BP 138/78
[2016-12-07 12:22] VITALS: BP 143/77
--- NOTE | 2016-12-07 14:09 | NUR ---
PT HAS BEEN CALM AND COOPERATIVE THIS SHIFT. HE IS ATTENDING GROUPS AND HIS INTERACTIONS WITH STAFF AND PEERS IS FRIENDLY AND APPROPRIATE. PT STATED HE EXPECTED TO HAVE A FAMILY MEETING TODAY. PT DENIES SUICIDAAL THOUGHTS OR THOUGHTS OF SELF HARM
--- NOTE | 2016-12-07 14:28 | CP SOUTH PROGRESS NOTE PSYCH ---
Psych (Inpt) Progress Note Progress Note Progress Note: I discussed this patient's progress to date, current mental status, treatment process in the context of the treatment plan, and discharge planning with staff/ team in the daily morning inpatient team meeting. I also met with the patient myself in individual session. SUBJECTIVE: "I regret what I did. I know that I'll never try to kill myself again. I kept everything bottled up inside, but now I know I can speak to my family and friends. I miss my daughter, I need to give her a hug" OBJECTIVE: Current Medications Sig/Sarika Start time Last Medication Dose Route Stop Time Status Admin Omeprazole 40 MG DAILY AC 12/06 0700 AC 12/07 PO 12/08 0701 0641 Vital Signs Date Time Temp Pulse Resp B/P Pulse O2 O2 Flow FiO2 Ox Delivery Rate 12/07 1222 58 143/77 12/07 0757 96.3 62 138/78 12/06 1950 96.2 67 132/70 12/06 1728 67 130/77 ASSESSMENT: I met with the patient twice today. Once in individual session along with social research assistant SHEILA Ayala. A second time during a family meeting which was held along with myself, Gretchen, the patient, his mother, and stepfather. Patient insists that staying in the hospital is causing him depression. 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 Patient states that he believes that he does not need therapy or medications, however is willing to engage in therapy after discharge. Patient's mother stated that that she is sure that the patient is safe for discharge. Furthermore he will be staying at at home with his mother and stepfather. They state that they will ensure his safety, and are adamant that he leave the hospital as soon as possible. We reviewed with the patient and his family his options including staying in the hospital for therapy and treatment which is our recommendation, contacting the patient advocate, requesting a probable cause hearing, and signing in voluntarily and then signing a three-day paper. Patient and his family verbalized understanding of these options. They state that the option that they insist upon is that he be able to sign out AGAINST MEDICAL ADVICE. Patient denies depression or anxiety. Denies suicidal ideation, homicidal ideation, auditory hallucinations, visual hallucinations, paranoid ideation. Speech is well articulated, goal-directed, average in rate, volume and tone. Patiet exhibits limited insight into the severity, or the causes of his suicidal attempt. As per nursing report, patient has been calm, cooperative and appropriate on the unit. Consistently denies suicidal ideation. Has been interacting on the unit appropriately. The patient understands the risks/benefits/side effects of the medication and is agreeable to continue taking them. PLAN: After discussing this case with the department authorization representative Dr. Mc, nursing staff, social work staff, and occupational therapist, team consensus is that the patient is not safe and ready for discharge. The patient has been informed of this decision, that he will not be discharged from the hospital at this time. We anticipate discharge to be after the weekend, perhaps on Sunday. Patient is aware. At the time of this writing, patient states that he declines to file for probable cause, and declines to sign in voluntarily and signed a three-day paper. Patient is not agreeable to medications at this time. Continue to provide support and encouragement.
[2016-12-07 16:13] VITALS: BP 148/66
--- NOTE | 2016-12-07 16:27 | SOCIAL WORKER TX PLAN PSYCH ---
Treatment Plan - Please Document: - Evidence that there is ongoing collaboration between - the patient and the interdisciplinary team, - including the patient's active participation and - responsibility for engaging in the treatment regimen, - and that the treatment plan is individualized and - relevant to the patient's conditions. - Treatment plan should reflect documentation indicating - that all active therapeutic efforts are included. Strengths/Capabilities: unable to assess at this time Physical Limitations (Interventions): No Patient Identified Trmt Goals: "I don't want to be in the hospital" Discharge Plan: IOP Problem/Goals #1 Problem #1: depression Goal (Short Term): Patient will consider medication to assist with depression. Goal ([facility]): Patient will be able to identify reason for wanting to live his life. Interventions: patient will be offered medication management with the LABEL DESIGNER. Patient will be offered groups on symptom management, coping skills, goals group, focus group, relaxation skills, art therapy, accupuncture. Assistant Vice President will assess for SI and discuss things that make life worth living. Assistant Vice President will coordinate with family and assist with aftercare planning. DSM5/PS Stressors/Medical Prob Diagnosis' (DSM 5, Stressors, Medical): Unspecified Depressive Disorder Treatment Team - Responsibilities of members of the treatment team include: - Medication Management- MD or LABEL DESIGNER - Medication Administration and Monitoring- Nurse - Group Therapy- Occupational Therapist - 1:1 Therapy,Disch Planning,family involvement-Assistant Vice President
--- NOTE | 2016-12-07 16:27 | SOCIAL WORKER PROG NOTE PSYCH ---
Social Work Progress Note Progress Note Zak Verdugo APRN and I met with Stanley together. Stanley talked about how he feels he made a mistake by overdosing on a lethal dose of Advil. He is happy to be alive. He reports that he was bottling things up too much and should have been talking to people. He really wants to leave the hospital today. He feels confined here and wants to be with his daughter and family. Zak talked about the seriousness of his attempt and how we typically need to see people for about a week after such an attempt and evaluate him further or else we wouldn't be doing our job. Talked about how he just got on the unit for a full day yesterday and that it would be beneficial to look and process the issues that got him here. Stanley didn't feel the need to do that in the hospital and stated he would see someone in outpatient. This conversation went back and forth with Stanley for several minutes, as he seems to lack the insight as to why being here would help in anyway. Shortly after this discussion his Mom and StepFather came to meet. Mom strongly advocated for Stanley to discharge from the hospital today. She believes that the best thing for him is to be with his family right now and feels that remaining in the hospital is increasing his depression. He denied SI today and feeling depressed. Refuses medication and stated that he doesn't think he needs therapy, but will go to therapy if necessary. The reasons for wanting to keep him here longer were reiterated again during the family meeting. The stepfather seemed most supportive of him staying for a couple of days to work on some issues. I told all that it seemed like we were spending more time arguing his discharge versus discussing anything therapeutic. All legal options were presented to Stanley (probable cause, signing in and then submitting a 3 day paper). He didn't feel the need to pursue any of those. We did tell the family that we would discuss whether or not he would be a candidate to leave AMA, because our recommendation would be for him to stay through the weekend at least. Mom stated that he would be home with them and that they would keep an eye on him. 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 He said over and over that he wouldn't do this again and that he didn't realize until after how many people he had that cared. Told family that we would discuss him leaving AMA as a team and then get back to him with a decision. After futher discussion with nursing and Dr. Mc we did not permit him to leave AMA due to our concerns of not knowing the patient well enough yet. Zak Garcia APRN informed Stanley of the decision.
[2016-12-07 19:34] VITALS: BP 150/71
--- NOTE | 2016-12-07 21:55 | NUR ---
PT UPSET THIS AFTERNOON AFTER LEARNING HE WAS NOT BEING DISCHARGED TODAY. PT STAYED IN BED MOST OF SHIFT UNTIL HIS FAMILY CAME TO VISIT. PT IS IRRITABLE AT TIMES. PT IS NOT ATTENDING GROUPS. PT DENIES SI THOUGHTS.
--- NOTE | 2016-12-08 04:48 | NUR ---
SLEPT WELL OVERNIGHT, NO COMPLAINTS
[2016-12-08 07:51] VITALS: BP 124/64
--- NOTE | 2016-12-08 12:05 | SOCIAL WORKER PROG NOTE PSYCH ---
Social Work Progress Note Progress Note Encouraged Stanley to call [employer] this morning to enroll in [employer]. He made the call on his own and later informed me that he is eligible for [employer] D. He told me that his Dad is in town and is interested in setting up a meeting or phone conference to find out what's going on with him. He was calm and pleasant today during our conversation. He shared that his daughter was not around at the time of the incident and that he had made arrangements for her to be with her Mom during that time. He talked about how emotional he felt over the breakup with his daughter's Mom and how he was led to believe that they may be getting back together. He will not be getting as involved with her at this point and stated that there will be a 3rd constitution party involved such as his Mom or StepDad to get/ bring his daughter to her Moms. Stanley enjoys being around his daughter. Now that he has been out of work he typically watches her M-F 10-8pm. His Mother is also home during this time. He has been unemployed since May 2016 and is collecting unemployment. Said he is trying to look for another job, but most jobs are not as high in pay as what he was receiving. At the time when he was considering taking his life, he was feeling very useless inside. We talked about possibly opening the door to look at a lesser paying job, because with that it could open other opportunities and it was helpful for his self-worth. 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 He is interested in a donnie job with his Father in [place], but doesn't know if this job is still available. When he is not taking care of his daughter, he enjoys spending time fishing, skating, and being outdoors. He said during the winter he doesn't get to do alot of that, so he spends time playing video games. Talked at length about IOP as an aftercare option. He is ambivalent about it, at this time. Called Mr. Holland who apparently was in the hospital at a meeting. He stated he was trying to figure out what was happening with Stanley and his Mom. He asked to call me back. I later found out that he spoke with our licensed psychologist manager Dr. Mc. He is proposing to take Stanley to [facility] with him on Sunday evening for a job and is hoping we will let him go. After some discussion with the team, we are ok with the plan, but need some more details around timeframe and aftercare treatment. Stanley said he isn't sure how long he will be there and he will need to speak with his Father further.
[2016-12-08 12:11] VITALS: BP 135/76
--- NOTE | 2016-12-08 14:17 | CP SOUTH PROGRESS NOTE PSYCH ---
Psych (Inpt) Progress Note Progress Note Progress Note: I discussed this patient's progress to date, current mental status, treatment process in the context of the treatment plan, and discharge planning with staff/ team in the daily morning inpatient team meeting. I also met with the patient myself in individual session. SUBJECTIVE: "I am feeling better. It's for the best. I have not recovered completely, but I'm getting better. I find groups helpful. I have a more open mind after speaking with my father." OBJECTIVE: Current Medications Sig/Sarika Start time Last Medication Dose Route Stop Time Status Admin Omeprazole 40 MG DAILY AC 12/06 0700 DC 12/08 PO 12/08 0701 0651 Vital Signs Date Time Temp Pulse Resp B/P Pulse O2 O2 Flow FiO2 Ox Delivery Rate 12/08 1211 81 135/76 12/08 0751 96.6 64 124/64 12/07 1934 97.3 72 150/71 12/07 1613 70 148/66 ASSESSMENT: Patient presents today as calm, and cooperative. States that after a conversation with his biological father, he has decided that it is probably best for him to spend a couple of days in the hospital. States he's been enjoying groups, and believes that his stay here is helpful at this time. Declining medications at this time. Depression:0/10; Anxiety:0/10 (with 10 the worst.) Denies suicidal ideation, homicidal ideation, auditory hallucinations, visual hallucinations, paranoid ideation. Patient states and also believes that he will not kill himself. Speech is well articulated, goal-directed, average in rate, volume and tone. Calm, cooperative, logical, pleasant. Alert and oriented 3. The patient understands the risks/benefits/side effects of the medication and is agreeable to continue taking them. PLAN: Dr. Mc has spoken with the patient's father. Today I met with Gretchen Smith LCSW, Dr. Calvin, and nurse senior manager mergers & acquisitions Elizabeth to discuss the patient's disposition. Gretchen and I then met with the patient. The team and the patient agreed that his anticipated discharge date will be Sunday afternoon. 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 Patient is in agreement, and he will discuss details, including care for his daughter, with his family over the weekend. Final disposition and discharge planning to be done on Sunday morning. Continue with current management as patient is improving. Continue to provide support and encouragement.
--- NOTE | 2016-12-08 14:17 | IP INCIDENTAL NOTE PSYCH ---
Incidental Note Notation: Patient Safety and Care Improvement met with patient's father, Stanley Lacey, telephone [phone], who requested a call. I called and spoke with father. Father would like to take patient back with him to [facility] on Sunday afternoon. I informed father that I would relay this to the treatment team.
--- NOTE | 2016-12-08 14:21 | NUR ---
PT IS STABLE WITH FULL RANGE OF AFFECT. PT HAS BEEN OUT IN THE COMMUNITY AND INTERACTING WITH PEERS/STAFF MEMBERS. PT IS APPROPRIATE TO THE UNIT AND POLITE, COMPLIANT AND COOPERATIVE. VS ARE STABLE AND DENIES ANY SI/HI TO THIS MHW.
[2016-12-08 15:39] VITALS: BP 138/77
[2016-12-08 19:47] VITALS: BP 136/73
--- NOTE | 2016-12-08 22:04 | NUR ---
PT IS CALM, COOPERATIVE WITH STAFF AND PEERS, AND COMPLIANT WITH UNIT RULES. PT IS OFTEN IN [place] AND IS INTERACTING WELL WITH OTHERS. MOOD IS STABLE, AFFECT IS EUTHYMIC TO FULL RANGE, COMMUNICATION IS ORGANIZED AND APPEARS NORMAL IN ALL RESPECTS, AND APPETITE IS NORMAL. PT DENIES SI AT THIS TIME.
[2016-12-09 07:47] VITALS: BP 143/63
[2016-12-09 12:15] VITALS: BP 146/71
--- NOTE | 2016-12-09 14:33 | NUR ---
OUT IN COMMUNITY, SOCIAL WITH PEERS. MINIMAL INTERACTION WITH STAFF. REFUSED GROUPS THIS MORNING. MOOD IS STABLE, FULL RANGE OF AFFECT. DENIED THOUGHTS OF SELF HARM WHEN ASKED.
[2016-12-09 16:00] VITALS: BP 142/70
--- NOTE | 2016-12-09 16:24 | CP SOUTH PROGRESS NOTE PSYCH ---
Psych (Inpt) Progress Note Progress Note Include the following elements, when applicable: Involvement in the active treatment of the patient with behavioral observations of the patient and the patient's response to the treatment. Review of the ongoing treatment process in the context of the treatment plan. Indication of how multi-disciplinary staff members are carrying out the treatment plan. Plans for future interventions and recommendations for revision of the treatment plan. Liaison with other physicians/providers. Progress Note: Pt reports doing much better than at inital presentation. He feels that he was in "a depression" but it has lifted now. He denies any depression, anxiety, larry, psychosis or TRS. He denies SI or HI. He is looking forward to discharge on Sunday to his father's care. He is going to live/work with his dad [facility] and then will seek care there. Father apparently has long histroy of addication and mental health care. Very future-oriented. Denied medications. Does not feel necessary. Vital Signs Date Time Temp Pulse Resp B/P Pulse O2 O2 Flow FiO2 Ox Delivery Rate 12/09 1600 67 142/70 12/09 1215 76 146/71 12/09 0747 96.3 60 143/63 12/08 1947 96.9 67 136/73 MSE Appears as stated age. Cooperative behavior, good, appropriate eye contact. Nl speech rate and prosody. No psychomotor retardation or agitation. Mood fine Affect irritable constricted, appropriate, non-liable. Linear and goal directed thought process. Denies SI or HI. Does not appear to be responding to internal stimuli. Denies AVHs, paranoia, or delusions. I/J: limited A/P: Pt with MDD with attempted OD now stating that all depressive sx have resolved. Concerning as great level of distress lead to attempt and now pt seems to be minimizing. - Pt declining psychiatric meds - To arrange for d/c f/u - Encourage intergration into the milieu
[2016-12-09 19:33] VITALS: BP 136/80
--- NOTE | 2016-12-09 21:44 | NUR ---
PT IS STABLE WITH FULL RANGE OF AFFECT. VISIBLE WITHIN THE COMMUNITY WITH MINIMAL INTERACTIONS WITH PEERS/STAFF. PT HAS A LOT OF VISITORS IN AND OUT THE ENTIRE DAY BUT NO PROBLEMS WERE ENCOUNTERED. PTS FATHER DID, HOWEVER, COME IN UPSET WITH THE PRECISION MACHINE OPERATOR DOCTOR BECAUSE THE PT REPORTED THAT THE PRECISION MACHINE OPERATOR MD STATED HE WOULD NOT BE LEAVING BY SUNDAY. PT'S FATHER STATED HE ALREADY WAS IN CONTACT WITH PT [employer]. NO OTHER ISSUES WITH FAMILY MEMBERS/PT. VS ARE STABLE AND DENIES ANY SI/HI TO THIS MHW.
--- NOTE | 2016-12-10 06:23 | NUR ---
PT APPEARED TO SLEEP. FATHER VISITED IN THE EVENING- THE VISIT APPEARED TO GO WELL. PT HAS 3 DAY LETTER IN FROM 12/07 AT 1900.
[2016-12-10 07:40] VITALS: BP 128/77
--- NOTE | 2016-12-10 10:36 | CP SOUTH PROGRESS NOTE PSYCH ---
Psych (Inpt) Progress Note Progress Note Include the following elements, when applicable: Involvement in the active treatment of the patient with behavioral observations of the patient and the patient's response to the treatment. Review of the ongoing treatment process in the context of the treatment plan. Indication of how multi-disciplinary staff members are carrying out the treatment plan. Plans for future interventions and recommendations for revision of the treatment plan. Liaison with other physicians/providers. Progress Note: Pt notes that slept very well and in good mood this morning. He denies SI or HI. Again tried to engage patient around treatment of depression and anxiety. He adamant that does not feel he is depressed or anxious, despite recenet suicide attempt, and does not want meds. Plans to f/u with ?provider in [place], [place] where his father lives. Vital Signs Date Time Temp Pulse Resp B/P Pulse O2 O2 Flow FiO2 Ox Delivery Rate 12/10 0740 95.7 68 128/77 12/09 1933 97.8 71 136/80 12/09 1600 67 142/70 12/09 1215 76 146/71 MSE Appears as stated age. Cooperative behavior, good, appropriate eye contact. Nl speech rate and prosody. No psychomotor retardation or agitation. Mood good Affect irritable constricted, appropriate, non-liable. Linear and goal directed thought process. Denies SI or HI. Does not appear to be responding to internal stimuli. Denies AVHs, paranoia, or delusions. I/J: limited A/P: Pt with MDD with attempted OD now stating that all depressive sx have resolved. Concerning as great level of distress lead to attempt and now pt seems to be minimizing. - Pt declining psychiatric meds - SW to arrange for d/c f/u in ?[place] - Encourage intergration into the milieu
[2016-12-10 12:08] VITALS: BP 120/55
--- NOTE | 2016-12-10 13:28 | NUR ---
PT IS COMPLIANT AND COOPERATIVE WITH UNIT RULES. PT IS OUT IN COMMUNITY INTERACTING WITH STAFF AND PEERS. PT IS ATTENDING GROUPS. PT MOOD IS STABLE WTIH A FULL RANGE AFFECT. PT DENIES SI THOUGHTS.
[2016-12-10 15:40] VITALS: BP 131/67
[2016-12-10 20:08] VITALS: BP 135/68
--- NOTE | 2016-12-10 22:14 | NUR ---
PATIENT ALERT AND ORIENTED X3, CALM, COOPERATIVE WITH STAFF; HE HAS BEEN PRESENT IN [facility], WATCHING TV MOST OF EVENING; HE WENT TO BED EARLY; DID NOT ATTEND GROUPS.
--- NOTE | 2016-12-11 07:43 | NUR ---
PATIENT SLEPT ALL NIGHT.
[2016-12-11 07:53] VITALS: BP 145/89
--- NOTE | 2016-12-11 09:08 | CP SOUTH PROGRESS NOTE PSYCH ---
Psych (Inpt) Progress Note Progress Note Progress Note: I discussed this patient's progress to date, current mental status, treatment process in the context of the treatment plan, and discharge planning with staff/ team in the daily morning inpatient team meeting. I also met with the patient myself in individual session. SUBJECTIVE: "I'm doing really good. My plan is to engage in therapy when I get out." OBJECTIVE: Vital Signs Date Time Temp Pulse Resp B/P Pulse O2 O2 Flow FiO2 Ox Delivery Rate 12/11 075 97.6 70 145/89 12/11 2007 96.8 69 135/68 12/10 1540 71 131/67 12/10 1208 71 120/55 ASSESSMENT: Patient presents in pleasant, euthymic mood. Reports doing very well, offers no complaints. Patient is forward thinking. Looking forward to working with his father in [facility], taking care of his daughter, and then returning home to [place]. Patient declining medications. Team consensus is that patient is safe and ready for discharge. A family meeting was held today along with the patient, biological father, neonatal social worker Gretchen Lopez LCSW, and myself. We reviewed the patient's treatment, and discharge planning. Father was supportive. He stated that he would make sure to keep an eye on his son while he was staying in [place] with him, for approx 1-1/2 weeks. Both patient and his father expressed support for the plan that the patient will continue treatment at [facility] when her returns to [place]. Until the patient returns to [place], he will follow up as needed at their local hospital in [place] if the patient experiances any reoccurrence of suicidal ideation or exacerbations of depression. Patient's father stated that they would also be following up at support meetings at his [facility]. Depression:0/10; Anxiety:0/10 (with 10 the worst.) Denies suicidal ideation, homicidal ideation, auditory hallucinations, visual hallucinations, paranoid ideation. Patient states and also believes that he will not kill himself. When asked if he is having suicidal thoughts states "absolutely not." States that his daughter is his major protective factor. Speech is well articulated, goal-directed, average in rate, volume and tone. Calm, cooperative, pleasant, logical. Alert and oriented 3. The patient understands the risks/benefits/side effects of the medication and is agreeable to continue taking them. PLAN: Anticipate discharge today. Patient to be picked up by his father. Continue with current management as patient is improving. Continue to provide support and encouragement.
--- NOTE | 2016-12-11 11:15 | DISCHARGE SUMMARY REPORT-PSYCH ---
Visit Information Visit Dates/Diagnosis' Admission Date: 12/05/16 Discharge Date: 12/11/16 Reason for Admission: Patient is a 26-year old male with no formal psychiatric history, prior treatment, or suicide attempts. Presented to ED for first time status-post intentional overdose on 50+ tabs Advil (200mg tabs) with unclear intent. Patient denied overdose was a suicide attempt. He claims it was an attempt to release emotions in the context of struggling to cope with the losses of his job and apartment. Psy Discharge Primary Diag: Unspecified depressive d/o. Psy Discharge Secondary Diag: Cannabis use d/o, mild. Hospital Course Significant Lab Findings: Lab TSH 2.170 uIU/mL 12/06/16 0604 Urine Cannabis Screen 74.10 NG/ML H 12/05/16 0137 Course Complications: None Consultations: Patient was seen for admission history and physical by Dr. Diane. Please refer to the H&P for additional information. Allergies: Coded Allergies: NO KNOWN ALLERGIES (06/19/12) Hospital Course/TX Response: The patient was monitored on the unit for safety, depression, and suicidal ideation. He participated in multimodal treatments on the unit. He denied depression, anxiety, mood lability, or suicidal ideation. He declined to take any medications. A family meeting was held with his father. His father expressed his support for his son. Father has arranged for the patient to accompany him to his home in 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 We reviewed with the patient's father the course of treatment and discharge plans. Patient's father verbalized understanding of the severity of the patient's suicidal attempt, and promises to keep a close eye on his son, and refer him to hospital care in [place] if that should be necessary. Today, the day of discharge, the patient presents in pleasant, euthymic mood. Reports doing very well, offers no complaints. Patient is forward thinking. Looking forward to working with his father in [facility], taking care of his daughter, and then returning home to [place]. Patient declining medications. Team consensus is that patient is safe and ready for discharge. Depression:0/10; Anxiety:0/10 (with 10 the worst.) Denies suicidal ideation, homicidal ideation, auditory hallucinations, visual hallucinations, paranoid ideation. Patient states and also believes that he will not kill himself. When asked if he is having suicidal thoughts states "absolutely not." States that his daughter is his major protective factor. Speech is well articulated, goal-directed, average in rate, volume and tone. Calm, cooperative, pleasant, logical. Alert and oriented 3. The patient understands the risks/benefits/side effects of the medication and is agreeable to continue taking them. Patient reports tolerating his medications well, without complaint. States he feels safe and ready for discharge. Discharge HBIPS - Tobacco Use Treatment Offered Post DC Medications Offered: Refused Tob Medication Tx (Declined all medications ) Post DC Tobacco Treatment Plan: Juan Luis Tobacco Tx Pgm Program Appt Date: 12/27/16 Program Appt Time: 1600 - EtOH/Drug Use D/O Treatment Offered Post DC Medications Offered: NA-No EtOH/Drug Use D/O Post DC EtOH/SubAbuse TX Plan: NA-No EtOH/Drug Use D/O Metabolic Screening - Screen if on a Neuroleptic Medication - Metabolic screening should include: - Blood Pressure, BMI, Glucose or Hgb A1c, & a - Lipid profile from within the past 365 days. Metabolic Screening (x) Not Applicable, patient not on a neuroleptic. OR () Patient on a neuroleptic(s) . Enter below results for Glucose or Hemoglobin A1C, and lipid panel if obtained during the last 365 days. BMI: 25.200 Blood Pressure: 136/77 Laboratory Results (If applicable): Discharge Instructions General Discharge Information Discharge Medications: Discharge Medications- (Dose, route, freq, indication): Patient has declined all medications. No prescriptions issued. Multiple Neuroleptics: (x) Not Applicable OR Document below three failed attempts at monotherapy, or a plan to taper to monotherapy, or augmentation of Clozapine. () Patient's Diet: Regular Patient's Activity: No restrictions. DC Disposition: Patient will be staying with his father, in his father's home for approximately a week and a half. After which he will return to [place] where he lives with his mother, stepfather, and daughter. Recommendations: Follow-up at [facility]. Referred To: INTENSIVE OUTPT PSYCHIATRY Service Date: 12/21/16 [facility] Yamini Villanueva [id number] Notes: Intake for mental health IOP 12/21/16 11:30am [address] [place], [place] [phone] Copies To: Intensive Outpt Psychiatry
--- NOTE | 2016-12-11 11:30 | NUR ---
PT IS SCHEDUL[place] FOR [place] TODAY [place] [facility] [place] HE REPORTS AND DEMONSTRATES IMPROVEMENT IN HIS MOOD AND WHEN ASKED HE DENIES ANY THOUGHTS OF SUICIDE OR SELF HARM. PT EXPECTS TO GO LIVE WITH HIS FATHER FOR A FEW WEEKS AND THEN HE WILL RETURN AND AGREES TO FOLLOW UP WITH [facility] PT. PT IS NOT ON ANY SCHEDULED MEDS AT THIS TIME. PT IS GIVEN EDUCATION R/T MANAGING HIS MOODS AND ON SUICIDE PREVENTION
--- NOTE | 2016-12-11 12:34 | SOCIAL WORKER PROG NOTE PSYCH ---
Social Work Progress Note Progress Note Met in a family meeting with Stanley and his Father. Zak Verdugo APRN was also in attendance at the meeting. Stanley reports that he had a good weekend and that he had several visitors. Dad expressed his appreciation for Stanley being here and thought it was good that he didn't rodriguez out of here and that he was able to be here and think about things and clear his head. Stanley said in the end he did feel that there were some benefits to being here and feels good about his stay. Stanley's Father wants to take him to [place] today and start some work. He will be staying in [place] for about a week to week and half. Talked about how it would be best to start follow up treatment after he returns. I told him I can schedule an IOP appt. for when he gets back. He was agreeable. Asked if he wanted something closer to [facility]? He said no and that transportation shouldn 't be an issue. Dad may also give him a car that needs a little work. Dad seems knowledgable about recovery and 12 steps. He wants Stanley to join him tomorrow at an "encouragement" group at a [employer]. Stanley seemed willing to go. We also talked about if he should have a problem while in [place] there are places that are nearby and should be able to see him. I will give Stanley this information. Stanley is planning to take his daughter with him for the trip. His Father's significant other will watch her while they are at work. Talked about confirming this information with the baby's Mother Bárbara Catalan. Stanley signed a release for me to speak with her. We did connect and she is aware of the plan. Although she would like her returned on Sunday. She will speak further with Stanley's Father about the timeframe. I got Stanley an intake appt. for 12/21 at 11:30am. Stanley's Father is picking him up at 1:30pm.
[2016-12-11 12:37] VITALS: BP 136/77
== END 2016-12-11 13:40 | DRG 754 ==
LOC: CP SOUTH 16:44
PROVIDERS: ADMIT Psychiatry & Neurology Psychiatry
DX: F32.9 Major depressive disorder, single episode, unspecified (principal); F12.10 Cannabis abuse, uncomplicated
CPT/HCPCS: 36415; 82436